=== PATIENT | female | born 1955 | race Caucasian/White ===

== ENCOUNTER 2016-07-23 21:19 | Emergency (ER) | payer BC ==
[2016-07-23 21:36] VITALS: RESP 14; TEMP 98.4
--- NOTE | 2016-07-23 21:47 | EDPHY ---
H & P Stated Complaint: floaters,flashing light left eye HPI/ROS: CHIEF COMPLAINT: Floaters and flashes left eye HISTORY OF PRESENT ILLNESS: This is a 60-year-old female with history of hypertension who presents with floaters and flashes involving her left eye. She noticed a floater this morning and has been aware of it throughout the day. This evening she developed flashing lights, like "fire works", in her left peripheral visual field. No loss of vision. No eye pain. She is not aware of any head or eye trauma. She does not have a foreign body sensation. She wears glasses for vision correction. No history of eye surgery. Her joggle press operator is Dr. Guadalupe. REVIEW OF SYSTEMS: A ten point review of systems was performed and is negative with the exception of the items mentioned in the HPI. 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 She is here with her . - Physical Exam Exam: General Appearance: Alert. Vital signs reviewed. Blood pressure 169/90 at triage. A focused physical exam was performed. Eyes: Visual Acuity: noted from Nurse's notes. 20/15 OU, 20/15 OD, 20/20 OS with correction. Pupils: equal round and reactive to light EOMI, optic disc sharp OS. No afferent pupillary defect. No boudreaux red spot. No retinal separation seen. Lids: no edema or swelling Skin: no proptosis, no periorbital erythema or swelling, no vesicles Conjunctivae: not injected, no discharge Cornea: Fluorescein exam not performed. Anterior chamber: normal, no hyphema or hypopyon no retinal detachment appreciated. Neuro: Facial expression symmetric. Facial sensation intact to light touch. Visual farias full to bedside confrontational testing. Constitutional: Initial Vital Signs Temperature (C) 36.9 C 07/23/16 21:34 Heart Rate 81 07/23/16 21:34 Respiratory Rate 14 07/23/16 21:34 Blood Pressure 169/90 H 07/23/16 21:34 O2 Sat (%) 97 07/23/16 21:34 O2 Delivery Mode Room Air Allergies/Adverse Reactions: carbamazepine [From Tegretol] Allergy (Verified 07/23/16 21:33) divalproex sodium [From Depakote] Allergy (Verified 07/23/16 21:33) hydromorphone HCl [From Dilaudid] Allergy (Verified 07/23/16 21:33) Penicillins Allergy (Verified 07/23/16 21:33) phenytoin sodium [From Dilantin] Allergy (Verified 07/23/16 21:33) phenytoin sodium extended [From Dilantin] Allergy (Verified 07/23/16 21:33) Sulfa (Sulfonamide Antibiotics) Allergy (Verified 07/23/16 21:33) Home Medications: Medication Instructions Recorded Hydrochlorothiazide 07/17/15 Medical Decision Making ED Course/Re-evaluation: I spoke with Dr. Garzon, ophthalmology. It is my impression that this is likely a vitreous hemorrhage, not a retinal detachment. He is recommending follow-up on Monday. She will follow up with either Dr. Garzon or with her joggle press operator, Dr. Guadalupe. I do not suspect TIA, retinal artery or retinal vein occlusion (no afferent pupillary defect, no boudreaux red spot), glaucoma (no pain), optic neuritis, keratitis, corneal abrasion, retained foreign body. Danger signs were reviewed. Differential Diagnosis: I considered a differential diagnosis that includes but is not limited to retinal detachment, vitreous detachment, Departure - Departure Disposition: Home, Routine, Self-Care Clinical Impression: Vitreous detachment of left eye Condition: Good Instructions: Visual Floaters (ED) Additional Instructions: Take it easy until you see the joggle press operator. I do not recommend any vigorous physical activity. If you develop eye pain, headache, change in vision, any new or concerning symptoms you should be re-evaluated immediately. Call either Dr. Garzon or Dr. Guadalupe on Monday to arrange to be seen by 1 of them on Monday. Referrals: Karmen Suarez MD [Primary Care Provider] - As per Instructions Nabil Garzon MD [Medical Doctor] - As per Instructions Kalyan Guadalupe MD [Medical Doctor] - As per Instructions
[2016-07-23 22:58] VITALS: BP 150/84; PULSE 78; O2SAT 95
== END 2016-07-23 22:45 | disposition home or self-care (01) ==
LOC: CED 21:19
DX: H43.812 Vitreous degeneration, left eye (principal); I10 Essential (primary) hypertension